=== PATIENT | female | born 1935 | race Caucasian/White ===

== ENCOUNTER 2021-11-18 06:11 | Emergency (ER) | payer OTHER ==
[~2021-11-18] VITALS: Ht 152.4 cm; Wt 68.0 kg
[2021-11-18] MEDS ORDERED: SODIUM CHLORIDE 0.9% 1,000 ML IV ONE (07:00)
[2021-11-18] MEDS ORDERED: ASPirin 81 mg TAB PO ONE (07:00)
[2021-11-18] MEDS ORDERED: SODIUM CHLORIDE 0.9% 1,000 ML IVB ONE (07:00)
[2021-11-18 07:02] LABS: Urine WBC None Seen /hpf (0 - 5)
[2021-11-18 07:05] LABS: Basophils # (auto) 0.1 10 ^3/uL (0-0.2); Basophils % (auto) 2.5 % (0.0-2.0); Eosinophils # (auto) 0.1 10 ^3/uL (0-0.8); Eosinophils % (auto) 2.8 % (0.0-7.0); Hematocrit 39.2 % (36.0-46.0); Hemoglobin 13.6 g/dL (12.2-16.2); Mean Corpuscular Hgb Conc. 34.6 g/dL (32.0-36.0); Monocytes # (auto) 0.5 10 ^3/uL (0-1.3); Monocytes % (auto) 10.2 % (0.0-12.0); Neutrophils # (auto) 2.1 10 ^3/uL (1.6-8.6); Neutrophils % (auto) 43.5 % (37.0-80.0); Nucleated Red Blood Cells % 0.1 %; Red Blood Cells 3.77 10^6/uL (4.0-5.20); Red Cell Distribution Width 12.8 % (11.8-14.3); White Blood Cell 4.8 10^3/uL (4.4-10.8)
[2021-11-18 07:11] LABS: Urine Bacteria FEW /hpf (None Seen); Urine Blood Negative /uL (Negative); Urine Specific Gravity 1.005 (1.001-1.035)
[2021-11-18 07:17] LABS: Albumin 3.7 g/dL (3.4-5.0); BUN/Creatinine Ratio 26.5; Calcium 8.5 mg/dL (8.5-10.1); Potassium 3.5 mmol/L (3.5-5.1)
[2021-11-18 07:23] LABS: Partial Thromboplastin Time 25.4 sec (23.6-33.0)
[2021-11-18 07:26] LABS: Bilirubin, Total 0.5 mg/dL (0.2-1.0); Total Protein 7.1 g/dL (6.4-8.2)
[2021-11-18] MEDS ORDERED: dilTIAZem 25 MG/5 ML VIAL IV ONE (07:30)
[2021-11-18] MEDS ORDERED: IOHEXOL 350 MG/ML 100ML IJ ONE (10:55)
[2021-11-18 12:58] VITALS: BP 171/73
== END 2021-11-18 13:25 | disposition home or self-care (01) ==
LOC: ER 06:11 → EDBD 06:11 → ER 13:16
DX: I48.0 Paroxysmal atrial fibrillation (principal); D75.89 Other specified diseases of blood and blood-forming organs; M40.209 Unspecified kyphosis, site unspecified; G25.2 Other specified forms of tremor; J45.909 Unspecified asthma, uncomplicated; I10 Essential (primary) hypertension
CPT/HCPCS: 36415; 71045; 71275; 80053; 81001; 83735; 83880; 84443; 84484; 85025; 85379; 85610; 85730; 93005; 96361; 96374; 99285; J7030; J7040; Q9967

== ENCOUNTER 2021-12-18 17:21 | Emergency (ER) | payer OTHER ==
[~2021-12-18] VITALS: Ht 152.4 cm; Wt 68.0 kg
[2021-12-18] MEDS ORDERED: ACETAMINOPHEN 325 MG TAB PO ONE (18:45)
[2021-12-18] MEDS ORDERED: dilTIAZem 25 MG/5 ML VIAL IV ONE ×2 (18:45→21:00)
[2021-12-18 19:10] LABS: Basophils # (auto) 0 10 ^3/uL (0-0.2); Basophils % (auto) 0.5 % (0.0-2.0); Eosinophils # (auto) 0.1 10 ^3/uL (0-0.8); Eosinophils % (auto) 2.1 % (0.0-7.0); Hematocrit 38.9 % (36.0-46.0); Hemoglobin 13.3 g/dL (12.2-16.2); Lymphocytes # (auto) 1.8 10 ^3/uL (0.4-5.4); Lymphocytes % (auto) 30.9 % (10.0-50.0); Mean Corpuscular Hemoglobin 35.4 pg (28.0-32.0); Mean Corpuscular Hgb Conc. 34.2 g/dL (32.0-36.0); Mean Corpuscular Volume 103.4 fL (80.0-100.0); Monocytes # (auto) 0.6 10 ^3/uL (0-1.3); Neutrophils # (auto) 3.4 10 ^3/uL (1.6-8.6); Neutrophils % (auto) 56.5 % (37.0-80.0); Nucleated Red Blood Cells % 0.3 %; Red Blood Cells 3.76 10^6/uL (4.0-5.20); Red Cell Distribution Width 12.7 % (11.8-14.3); White Blood Cell 5.9 10^3/uL (4.4-10.8)
[2021-12-18 19:13] LABS: Urine Bacteria NONE SEEN /hpf (None Seen); Urine Blood Negative /uL (Negative); Urine Specific Gravity 1.007 (1.001-1.035); Urine WBC 1 /hpf (0 - 5)
[2021-12-18 19:24] LABS: Albumin 3.7 g/dL (3.4-5.0); BUN/Creatinine Ratio 25.7; Calcium 9.1 mg/dL (8.5-10.1); Potassium 3.9 mmol/L (3.5-5.1)
[2021-12-18 19:28] LABS: Bilirubin, Total 0.2 mg/dL (0.2-1.0); Total Protein 7.4 g/dL (6.4-8.2)
[2021-12-18] MEDS ORDERED: dilTIAZem 125mg/125ml BAG KIT 125 ML IV ONE (23:15)
[2021-12-19] MEDS ORDERED: amLODIPine BESYLATE 5 MG TAB PO ONE (00:30)
[2021-12-19 01:50] VITALS: BP 137/65
== END 2021-12-19 02:07 | disposition short-term general hospital (02) ==
LOC: ER 17:21
DX: I16.9 Hypertensive crisis, unspecified (principal); I10 Essential (primary) hypertension; J45.909 Unspecified asthma, uncomplicated
CPT/HCPCS: 36415; 71045; 80053; 81001; 84484; 85025; 93005; 96365; 96366; 96375; 96376; 99285; J7030

== ENCOUNTER 2022-06-12 05:15 | Emergency (ER) | payer OTHER ==
[~2022-06-12] VITALS: Ht 152.4 cm; Wt 70.5 kg
[2022-06-12 07:19] VITALS: BP 160/65
[2022-06-12] MEDS ORDERED: AZITHROMYCIN 500MG/ 250ML 250 ML IV ONE (08:00)
[2022-06-12] MEDS ORDERED: ACETAMINOPHEN 325 MG TAB PO ONE (08:15)
== END 2022-06-12 09:53 | disposition home or self-care (01) ==
LOC: ER 05:15
DX: L03.011 Cellulitis of right finger (principal); I10 Essential (primary) hypertension; I48.91 Unspecified atrial fibrillation; J45.909 Unspecified asthma, uncomplicated; Z88.0 Allergy status to penicillin; Z88.1 Allergy status to other antibiotic agents; Z88.5 Allergy status to narcotic agent; Z88.2 Allergy status to sulfonamides; Z88.8 Allergy status to other drugs, medicaments and biological substances
CPT/HCPCS: 73130; 96365; 99284; J0456

== ENCOUNTER 2024-02-06 04:07 | Emergency (ER) | payer OTHER ==
[~2024-02-06] VITALS: Ht 152.4 cm; Wt 75.0 kg
[2024-02-06 05:10] VITALS: PULSE 69; RESP 12; O2SAT 93
[2024-02-06 05:37] LABS: Basophils # (auto) 0 10 ^3/uL (0-0.2); Basophils % (auto) 0.5 % (0.0-2.0); Eosinophils # (auto) 0 10 ^3/uL (0-0.8); Eosinophils % (auto) 0.4 % (0.0-7.0); Hematocrit 35.1 % (36.0-46.0); Hemoglobin 11.7 g/dL (12.2-16.2); Lymphocytes # (auto) 0.7 10 ^3/uL (0.4-5.4); Lymphocytes % (auto) 9.4 % (10.0-50.0); Mean Corpuscular Hemoglobin 35.3 pg (28.0-32.0); Mean Corpuscular Hgb Conc. 33.2 g/dL (32.0-36.0); Mean Corpuscular Volume 106.4 fL (80.0-100.0); Monocytes # (auto) 0.9 10 ^3/uL (0-1.3); Neutrophils # (auto) 5.6 10 ^3/uL (1.6-8.6); Neutrophils % (auto) 76.7 % (37.0-80.0); Nucleated Red Blood Cells % 0.1 %; Red Cell Distribution Width 13.2 % (11.8-14.3); White Blood Cell 7.3 10^3/uL (4.4-10.8)
[2024-02-06] MEDS: ACETAMINOPHEN 325 MG TAB PO ONE (05:48)
[2024-02-06 05:51] LABS: INR 3.39 (0.9-1.15); Partial Thromboplastin Time 42.5 SEC (24.5-34.5); Prothrombin Time 32.8 sec (9.3-11.8)
[2024-02-06 06:08] LABS: Alanine Aminotransferase 15 U/L (7-40); Albumin 3.8 g/dL (3.2-4.8); Alkaline Phosphatase 53 U/L (46-116); Anion Gap 5 (5-15); Aspartate Aminotransferase 16 U/L (13-40); BUN/Creatinine Ratio 33.8 (10.0-20.0); Blood Urea Nitrogen 27 mg/dL (9-23); Calcium 8.9 mg/dL (8.7-10.4); Carbon Dioxide 24 mmol/L (20-30); Chloride 109 mmol/L (98-107); Glucose 148 mg/dL (74-106); Magnesium 1.9 mg/dL (1.6-2.6); Potassium 3.6 mmol/L (3.5-5.1); Sodium 138 mmol/L (136-145)
[2024-02-06 06:09] LABS: Bilirubin, Total 0.5 mg/dL (0.2-1.0); Total Protein 6.2 g/dL (5.7-8.2)
[2024-02-06 08:00] VITALS: PULSE 78; RESP 17; TEMP 98; O2SAT 93
[2024-02-06] MEDS: COLCHICINE 0.6 MG CAP PO ONE (08:20)
[2024-02-06] MEDS: DexAMETHasone SOD PHOS 10MG/1ML VIAL INJ IV ONE (08:20)
[2024-02-06] MEDS: MORPHINE SULFATE 4 MG/ML SYR/VIAL IV ONE (08:24)
[2024-02-06 10:00] VITALS: BP 110/35; RESP 15; O2SAT 94
[2024-02-06 10:21] LABS: Urine Bacteria MANY /hpf (None Seen); Urine Blood Negative /uL (Negative); Urine Clarity Clear (Clear); Urine Color Yellow (Yellow); Urine Mucus FEW (None Seen); Urine Protein, UAD Negative (Negative); Urine Specific Gravity 1.019 (1.001-1.035); Urine Urobilinogen Normal (Negative); Urine WBC 2 /hpf (0 - 5); Urine pH 5.5 (5.0-9.0)
[2024-02-06] MEDS ORDERED: PRED20TA2 PO (10:52)
[2024-02-06] MEDS ORDERED: HYDR-4902 PO (10:52)
[2024-02-06 10:54] VITALS: PULSE 64
[2024-02-11] MEDS ORDERED: ACETAMINOPHEN 325 MG TAB PO ONE (05:30)
== END 2024-02-06 11:19 | disposition home or self-care (01) ==
LOC: ER 04:07 → EDBD 04:07 → ER 11:19
DX: M19.021 Primary osteoarthritis, right elbow (principal); I10 Essential (primary) hypertension; G25.0 Essential tremor; M25.521 Pain in right elbow; M79.89 Other specified soft tissue disorders; M25.021 Hemarthrosis, right elbow; M10.9 Gout, unspecified; I48.91 Unspecified atrial fibrillation; R79.89 Other specified abnormal findings of blood chemistry; J45.909 Unspecified asthma, uncomplicated; Z88.8 Allergy status to other drugs, medicaments and biological substances
CPT/HCPCS: 36415; 70450; 71045; 73080; 80053; 81001; 83735; 83880; 84484; 85025; 85610; 85730; 93005; 96374; 96375; 99285; J1100; J2270

== ENCOUNTER 2025-03-19 07:56 | Emergency (ER) | payer OTHER ==
[~2025-03-19] VITALS: Ht 165.1 cm; Wt 68.0 kg
[~2025-03-19 07:56] MED LIST: HYDR-4902 PO; PRED20TA2 PO
[2025-03-19] MEDS: amLODIPine BESYLATE 5 MG TAB PO ONE (08:32)
[2025-03-19 08:33] VITALS: PULSE 82; RESP 16; TEMP 98; O2SAT 100
--- NOTE | 2025-03-19 08:37 | ED.PDOC ---
History of Present Illness HPI Comments 89-year-old female with PMHx HTN brought in by EMS presents with a chief complaint of HTN. Patient states that her primary medical doctor is currently adjusting her HTN medications and takes 10mg of Amlodipine and Losartan. Patient states that she has been compliant with all her medications. Patients BP on a rrival to ER was 221/72 and at home was 220/100. Patient has a slight headache, but denies any chest pain or SOB, or any other symptoms. Chief Complaint: High Blood Pressure Time Seen by MD: 08:14 Primary Care Provider: UNKNOWN Reviewed Notes: Medications, Allergies Allergies: Coded Allergies: Tramadol (Verified Allergy, Severe, 06/12/22) Cephalexin (Verified Allergy, Intermediate, 06/12/22) Ciprofloxacin (Verified Allergy, Intermediate, 06/12/22) Erythromycin (Verified Allergy, Intermediate, 06/12/22) Nifedipine (Verified Allergy, Intermediate, 06/12/22) Oxycodone (Verified Allergy, Intermediate, 06/12/22) Oxymetazoline (Verified Allergy, Intermediate, 06/12/22) Penicillin V (Verified Allergy, Intermediate, 06/12/22) Pravastatin (Verified Allergy, Intermediate, 06/12/22) Sertraline (Verified Allergy, Intermediate, 06/12/22) Sulfa Antibiotics (Verified Allergy, Intermediate, 06/12/22) Tetracycline (Verified Allergy, Intermediate, 06/12/22) Codeine (Verified Allergy, Mild, 06/12/22) Levofloxacin (Verified Allergy, Mild, 06/12/22) Mometasone (Verified Allergy, Mild, 06/12/22) Prednisone (Verified Allergy, Mild, 06/12/22) Salmeterol (Verified Allergy, Mild, 06/12/22) Ampicillin (Verified Allergy, Unknown, 06/12/22) Clarithromycin (Verified Allergy, Unknown, 06/12/22) Home Meds Active Scripts Prednisone (Prednisone) 20 Mg Tab, 20 MG PO BID for 3 Days, #6 MG Prov:ISRAEL CANTRELL MD 02/06/24 Hydrocodone-Acetaminophen (Hydrocodone Bitartrate/AC 5-325 mg) 1 Tab Tab, 1 TAB PO BID for 5 Days, #10 TAB Prov:ISRAEL CANTRELL MD 02/06/24 Information Source: Patient Mode of Arrival: EMS Severity: Moderate Timing: Hours Duration: Since onset Prehospital treatment: Recycler Past Medical History PAST MEDICAL HISTORY: AFIB, Asthma, HTN Surgical History: Denies all surgeries AUTOMOTIVE SERVICE MANAGER History: No Pertinent AUTOMOTIVE SERVICE MANAGER History Family History Family History: Unknown Social History Smoker: Non-Smoker Alcohol: Occasionally Drugs: Denies Drug Use Lives In: Home Constitutional: denies: chills, diaphoresis, fatigue, fever, malaise, sweats, weakness, others EENTM: denies: blurred vision, double vision, ear bleeding, ear discharge, ear drainage, ear pain, ear ringing, eye pain, eye redness, hearing loss, mouth pain, mouth swelling, nasal discharge, nose bleeding, nose congestion, nose pain, photophobia, tearing, throat pain, throat swelling, voice changes, others Respiratory: denies: cough, hemoptysis, orthopnea, SOB at rest, shortness of breath, SOB with excertion, stridor, wheezing, others Cardiovascular: denies: chest pain, dizzy spells, diaphoresis, Dyspnea on exertion, edema, irregular heart beat, left arm pain, lightheadedness, palpitations, PND, syncope, others Gastrointestinal: denies: abdomen distended, abdominal pain, blood streaked bowels, constipated, diarrhea, dysphagia, difficulty swallowing, hematemesis, melena, nausea, poor appetite, poor fluid intake, rectal bleeding, rectal pain, vomiting, others Genitourinary: denies: abnormal vagina bleeding, burning, dyspareunia, dysuria, flank pain, frequency, hematuria, incontinence, pain, , vagina discharge, urgency, others Neurological: denies: dizziness, fainting, headache, left sided numbness, left sided weakness, numbness, paresthesia, pre-existing deficit, right sided numbness, right sided weakness, seizure, speech problems, tingling, tremors, weakness, others Musculoskeletal: denies: back pain, gout, joint pain, joint swelling, muscle pain, muscle stiffness, neck pain, others Integumetry: denies: bruises, change in color, change in hair/nails, dryness, laceration, lesions, lumps, rash, wounds, others Allergic/Immunocompromised: denies: Difficulty Healing, Frequent Infections, Hives, Itching, others Hematologic/Lymphatic: denies: anemia, blood clots, easy bleeding, easy bruising, swollen glands, others Endocrine: denies: excessive hunger, excessive sweating, excessive thirst, excessive urination, flushing, intolerance to cold, intolerance to heat, unexplained weight gain, unexplained weight loss, others Psychiatric: denies: anxiety, bipolar disorder, depression, hopeless, panic disorder, schizophrenia, sleepless, suicidal, others All Other Systems: Reviewed and Negative ( PER HPI) Physical Exam General Appearance: Moderate Distress, Normal HEENT: Normal ENT Inspection, Pharynx Normal, TMs Normal Neck: Full Range of Motion, Non-Tender, Normal, Normal Inspection Respiratory: Chest Non-Tender, Lungs Clear, No Accessory Muscle Use, No Respiratory Distress, Normal Breath Sounds Cardiovascular: No Edema, No JVD, No Murmur, No Gallop, Normal Peripheral Pulses, Regular Rate/Rhythm Breast Exam: Deferred Gastrointestinal: No Organomegaly, Non Tender, No Pulsatile Mass, Normal Bowel Sounds, Soft Genitalia: Deferred Pelvic: Deferred Rectal: Deferred Extremities: No calf tenderness, Normal capillary refill, Normal inspection, Normal range of motion, Non-tender, No pedal edema Musculoskeletal : Apperance: Normal Neurologic: Alert, director customer II-XII nml as Tested, No Motor Deficits, Normal Affect, Normal Mood, No Sensory Deficits Cerebellar Function: Normal Reflexes: Normal Skin: Dry, Normal Color, Warm Peripheral Pulses: 3+ Radial (R), 3+ Radial (L) Lymphatic: No Adenopathy Was a procedure done? Was a procedure done?: No Differential Dx Considerations may include: Hypertension X-Ray, Labs, Meds, VS Vital Signs Date Time Temp Pulse Resp B/P (MAP) Pulse Ox O2 Delivery O2 Flow Rate FiO2 03/19/25 10:22 189/63 (105) 03/19/25 08:33 82 16 100 Room Air 03/19/25 08:33 98.0 82 16 199/69 (112) 100 98.0 03/19/25 08:32 199/69 03/19/25 08:30 98.7 73 18 221/72 (121) 97 98.7 03/19/25 08:18 98.7 73 18 221/72 (121) 97 98.7 Lab Test 03/19/25 08:42 03/19/25 08:41 Range/Units Troponin I High Sensitivity 18 </=34 ng/L Urine Color Light-yellow Yellow Urine Clarity Clear Clear Urine pH 6.5 5.0-9.0 Urine Specific [place] 1.004 1.001-1.035 Urine Protein Negative Negative Urine Ketones Negative Negative Urine Blood Negative Negative /uL Urine Nitrite Negative Negative Urine Bilirubin Negative Negative Urine Urobilinogen Normal Negative mg/dL Urine Leukocyte Esterase Negative Negative /uL Urine RBC <1 0 - 4 /hpf Urine Microscopic WBC < 1 0-5 /HPF Urine Squamous Epithelial Cells Few <5 /hpf Urine Bacteria Few H None Seen /hpf Urine Glucose Normal Normal mg/dL Current Medications Medications (Trade) Dose Ordered Sig/Isauro Route Start Time Stop Time Status Last Admin Amlodipine Besylate (Norvasc Tablet) 10 mg ONCE ONCE PO 03/19/25 08:30 03/19/25 08:31 DC 03/19/25 08:32 Patient alert. Blood pressure elevated on arrival. Was given Norvasc. Vitals stable. Urinalysis was within normal limits pain Was given prescription of Norvasc. No leg swelling. No chest pain. No shortness a breath. Explained to the patient. Was told to follow up with her primary care physician. Was told to come back if there is any problem. Time of 1ST Reevaluation: 08:44 Reevaluation 1ST: Improved Patient Education/Counseling: Diagnosis, Treatment, Need For Follow Up Family Education/Counseling: No Family Present SEPSIS Sepsis Screen Date sepsis recognized/suspect: Mar 19, 2025 Time Sepsis recognized/suspect: 0800 Recent Procedure: No On Antibiotic Therapy: No Respiratory Rate >20: No Heart Rate >90: No Temp<36 C (96.8 F) or >38.3 C: No SBP <90 or MAP <65 mmHG: No New Acute Mental Status Change: No Is the patient on CPAP, BIPAP,: No Physician Orders Electrocardigram (03/19/25 08:05) Vital Signs Date Time Temp Pulse Resp B/P (MAP) Pulse Ox O2 Delivery O2 Flow Rate FiO2 03/19/25 10:22 189/63 (105) 03/19/25 08:33 82 16 100 Room Air 03/19/25 08:33 98.0 82 16 199/69 (112) 100 98.0 03/19/25 08:32 199/69 03/19/25 08:30 98.7 73 18 221/72 (121) 97 98.7 03/19/25 08:18 98.7 73 18 221/72 (121 97 98.7 Medications Medications Dose Ordered Sig/Isauro Route Start Time Stop Time Status Last Admin Dose Admin Amlodipine Besylate 10 mg ONCE ONCE PO 03/19/25 08:30 03/19/25 08:31 DC 03/19/25 08:32 Departure 1 Departure Time of Disposition: 10:43 Impression: Primary Impression: Hypertensive urgency Disposition: 01 HOME / SELF CARE / HOMELESS Condition: Good e-Prescriptions Amlodipine Besylate (NORVASC TABLET) 5 Mg Tb 1 TAB PO DAILY for 10 Days, #10 TAB 5 Refills Prov: JAMILAH GUARDADO MD 03/19/25 Discharged With: Self Critical Care Note Critical Care Time?: No Stability Stability form required: No Heart Score Heart Score: Heart Score Response (Comments) Value History N/A 0 EKG N/A 0 Age N/A 0 Risk Factors N/A 0 Troponin N/A 0 Total 0 I personally scribed for JAMILAH GUARDADO MD ([email or web address]) on 03/19/25 at 08:37. Electronically submitted by Lico Rivera ([email or web address]). JAMILAH GUARDADO MD Mar 19, 2025 08:37
[2025-03-19 10:22] VITALS: BP 189/63
[2025-03-19 10:33] LABS: Urine Bacteria FEW /hpf (None Seen); Urine Blood Negative /uL (Negative); Urine Clarity Clear (Clear); Urine Protein, UAD Negative (Negative); Urine Specific Gravity 1.004 (1.001-1.035); Urine Squamous Epithelial Cell FEW /hpf (<5); Urine Urobilinogen Normal (Negative); Urine WBC < 1 /HPF (0-5); Urine pH 6.5 (5.0-9.0)
[2025-03-19 10:34] LABS: Urine Color Light-Yellow (Yellow)
[2025-03-19] MEDS ORDERED: AML5T PO (10:44)
--- NOTE | 2025-03-19 18:26 | ECG ---
[facility] Test Date: 2025-03-19 Test Time: 07:58:37 Pat Name: RADHA PRESCOTT Department: ED Room: Gender: F Barber Or Beauty Shop Manager: TREY GARCIAB: 1935 Requested By: JAMILAH GUARDADO Order Number: [id number] Reading MD: Jaswinder Clifford Measurements Intervals [place] Rate: 73 P: 31 CT: 151 QRS: 2 QRSD: 98 T: 3 QT: 382 QTc: 421 Interpretive Statements Sinus rhythm Abnormal R-wave progression, early transition LVH with secondary repolarization abnormality Electronically Signed On 03-19-2025 20:14:54 PDT by Jaswinder Clifford Please click the below link to view image of tracing.
== END 2025-03-19 10:55 | disposition home or self-care (01) ==
LOC: ER 07:56 → EDBD 07:56 → ER 10:55
DX: I16.0 Hypertensive urgency (principal); I48.91 Unspecified atrial fibrillation; J45.909 Unspecified asthma, uncomplicated; Z88.0 Allergy status to penicillin; Z88.1 Allergy status to other antibiotic agents; Z88.2 Allergy status to sulfonamides; Z88.5 Allergy status to narcotic agent; Z88.8 Allergy status to other drugs, medicaments and biological substances
CPT/HCPCS: 36415; 81001; 84484; 93005